=== PATIENT | male | born 1950 | race Caucasian/White ===

== ENCOUNTER 2017-07-14 09:58 | Emergency (ER) | payer MEDICARE ==
[~2017-07-14] VITALS: Ht 182.9 cm; Wt 95.3 kg
[~2017-07-14 09:58] MED LIST: ALBUTEROL SULF8.5 GM INH; ALBUTEROL0.63 MG/3 INH; AMLODIPINE BESYL5 MG PO; BENEFIBER240 GM PO; BENTYL10 MG PO; BENTYL20 MG PO; CARAFATE1 GM/10 ML PO; DOXYCYCLINE HY100 M3 PO; FINASTERIDE5 MG PO; LORAZEPAM2 MG PO; OMEPRAZOLE40 MG PO; PANTOPRAZOLE SO40 MG PO; PREVACID15 M1 PO; QUESTRAN PACKET4 GM PO; REGLAN10 MG; REGLAN10 MG PO; ULTRAM 50MG50 MG PO; Z.0.AMBIEN10 MG PO; Z.0.COUMADIN5 MG PO; Z.0.LYRICA200 MG PO; [UNRECOGNIZED DRUG - OTHER] PO
[2017-07-14] MEDS ORDERED: MORPHINE SULFATE 4 MG/ML SYR IV STA (10:02)
[2017-07-14] MEDS ORDERED: SODIUM CHLORIDE 0.9% 1000ML 1,000 ML IV STA (10:02)
[2017-07-14] MEDS ORDERED: ONDANSETRON HCL INJ 2 MG/ML VIAL IV STA (10:02)
[2017-07-14] MEDS ORDERED: DIATRIZOATE MEGL/DIATRIZOA SOD 30 ML BTL PO ONE (10:14)
[2017-07-14] MEDS ORDERED: MORPHINE SULFATE 2 MG/ML SYR IV NR (10:15)
[2017-07-14 10:50] LABS: BASOPHILS % 0.5 % (0.0-1.0); EOSINOPHILS # (AUTO) 0.2 (0.0-0.4); EOSINOPHILS % 2.6 % (0.0-6.0); HEMATOCRIT 48.7 % (38.2-49.6); HEMOGLOBIN 16.3 g/dL (14.0-18.0); LYMPHOCYTES # (AUTO) 1.8 (1.0-3.2); LYMPHOCYTES % 24.9 % (18.0-39.1); MEAN CORPUSCULAR HEMOGLOBIN 28.3 pg (28-32); MEAN CORPUSCULAR HGB CONC 33.5 g/dL (31-35); MEAN CORPUSCULAR VOLUME 84.7 fL (81-99); MONOCYTES # (AUTO) 0.6 (0.2-0.8); MONOCYTES % 7.9 % (4.4-11.3); NEUTROPHILS # (AUTO) 4.7 (2.1-6.9); NEUTROPHILS % 63.8 % (38.7-80.0); PLATELET COUNT 203 x10e3/uL (140-360); RED BLOOD COUNT 5.75 x10e6/uL (4.3-5.7); RED CELL DISTRIBUTION WIDTH 14.8 % (11.7-14.4)
[2017-07-14 10:53] LABS: BILIRUBIN,URINE NEGATIVE (NEGATIVE); KETONES,URINE NEGATIVE (NEGATIVE); LEUKOCYTE ESTERASE ,URINE NEGATIVE (NEGATIVE); NITRITE,URINE NEGATIVE (NEGATIVE); PROTEIN,URINE DIPSTICK NEGATIVE (NEGATIVE); URINE UROBILINOGEN 0.2 mg/dL (0.2 - 1)
[2017-07-14 10:55] LABS: COLOR,URINE YELLOW (YELLOW)
[2017-07-14 11:06] LABS: ALANINE AMINOTRANSFERASE 14 IU/L (0-55); ALBUMIN 4.2 g/dL (3.5-5.0); ALKALINE PHOSPHATASE 104 IU/L (40-150); ANION GAP 13.4 mmol/L (8-16); BLOOD UREA NITROGEN 12 mg/dL (7-26); BUN/CREATININE RATIO 12 (6-25); CALCIUM 9.9 mg/dL (8.4-10.2); CARBON DIOXIDE 23 mmol/L (22-29); CHLORIDE 105 mmol/L (98-107); CREATINE KINASE 33 IU/L (30-200); EST GLOMERULAR FILTRATION RATE > 60 ML/MIN (60-); GLUCOSE 111 mg/dL (74-118); LIPASE 17 U/L (8-78); POTASSIUM 4.4 mmol/L (3.5-5.1); SODIUM 137 mmol/L (136-145)
[2017-07-14 11:12] LABS: TROPONIN I 0.011 ng/mL (0-0.300)
[2017-07-14 11:13] LABS: CLARITY,URINE SL CLOUDY (CLEAR); EPITHELIAL CELLS,URINE RARE /LPF; WBC,URINE (MAN) 0-5 /HPF (0-5)
--- NOTE | 2017-07-14 11:51 | Diagnostic Imaging Report ---
PROCEDURE:CHEST SINGLE (PORTABLE) TECHNIQUE:Portable AP chest INDICATION:Diarrhea; abdominal pain COMPARISON:None. FINDINGS: Lungs are clear and symmetrically inflated. No pleural effusions. Normal heart size, mediastinal contour and pulmonary vasculature. Intact skeleton. CONCLUSION: No acute abnormality. Dictated by: Brian Diaz M.D. on 07/14/2017 at 12:00 Electronically approved by: Brian Diaz M.D. on 07/14/2017 at 12:00
[2017-07-14] MEDS ORDERED: SODIUM CHLORIDE 0.9% 50ML 50 ML ONE (11:54)
[2017-07-14] MEDS ORDERED: IOPAMIDOL 370 MG/ML 200 ML INFUS..BTL INJ ONE (11:54)
--- NOTE | 2017-07-14 12:13 | Diagnostic Imaging Report ---
PROCEDURE: CT ABDOMEN AND PELVIS WITH CONTRAST TECHNIQUE: The abdomen and pelvis were scanned utilizing a multidetector helical scanner from the diaphragm to the lesser trochanter after the IV administration of 100 cc of Isovue 370 and the oral administration of dilute Gastrografin. Coronal and sagittal multiplanar reformations were obtained. COMPARISON: [facility], CT, CT ABDOMEN/PELVIS W, 11/12/2016, 18:45. INDICATIONS: ABDOMINAL PAIN FINDINGS: LOWER THORAX: Linear opacities in bilateral lower lobes, which may represent subsegmental atelectasis or scarring. Scattered areas of tree in bud opacities in the posterolateral right lower lobe (for example series 2, image 5), and left lower lobe (series 2, image 3). HEPATOBILIARY: No focal hepatic lesions. Stable mild dilation of the common bile duct, which measures approximately 9 mm at the mita hepatis. No radiopaque intraluminal filling defects. Cholecystectomy clips. SPLEEN: No splenomegaly. PANCREAS: No focal masses or ductal dilatation. Marked fatty replacement, worse in the pancreatic head and uncinate process. ADRENALS: No adrenal nodules. KIDNEYS/URETERS: No hydronephrosis, stones, or solid mass lesions. PELVIC ORGANS/BLADDER: Bladder shows no focal lesions or wall thickening. Enlarged prostate. PERITONEUM / RETROPERITONEUM: No free air or fluid. LYMPH NODES: No lymphadenopathy. VESSELS: Celiac trunk, superior and inferior mesenteric, and bilateral renal arteries are patent. Portal, superior mesenteric, and splenic veins are patent. Atherosclerotic calcification of the infrarenal abdominal aorta and iliac vessels. GI TRACT: No bowel dilation or evidence of obstruction. Appendix is well identified and normal in caliber. No pericolonic inflammatory changes. Stomach is unremarkable. BONES AND SOFT TISSUES: No aggressive lytic lesions. Stable vertebroplasty changes in L2. Soft tissues are grossly unremarkable. IMPRESSION: 1. no acute abdominopelvic abnormalities. Specifically, no acute abnormal findings to explain the patient's abdominal pain. 2. Scattered areas of tree in bud opacities in bilateral lower lobes, suggesting endobronchial spread of infection versus aspiration. 3. Stable CBD dilation secondary to post cholecystectomy status. Clive Mitchell M.D. Dictated by: Clive Mitchell M.D. on 07/14/2017 at 12:22 Electronically approved by: Clive Mitchell M.D. on 07/14/2017 at 12:22
[2017-07-14 13:21] VITALS: BP 129/82
== END 2017-07-14 13:22 | disposition home or self-care (01) ==
LOC: ER 09:58
DX: R10.31 Right lower quadrant pain (principal); R10.32 Left lower quadrant pain; R10.33 Periumbilical pain; G62.9 Polyneuropathy, unspecified; K50.90 Crohn's disease, unspecified, without complications; B19.20 Unspecified viral hepatitis C without hepatic coma; J44.9 Chronic obstructive pulmonary disease, unspecified; M54.9 Dorsalgia, unspecified; G89.29 Other chronic pain
CPT/HCPCS: 36415; 71010; 74177; 80053; 81001; 82550; 82553; 83605; 83690; 84484; 85025; 87086; 93005; 99284; J7030; Q9967

== ENCOUNTER 2017-11-08 09:08 | Emergency (ER) | payer MEDICARE ==
[~2017-11-08] VITALS: Ht 182.9 cm; Wt 97.5 kg
--- OUTSIDE RECORDS SUMMARY | 2017-11-08 09:12 | XMS REPORT ---
Author Author [facility] Address Unknown Phone Unavailable Care Team Providers Care Associate Professor Of Media Arts Name Role Phone SYMONE HARMAN Unavailable Unavailable LUCIUS VALLEJO Unavailable Unavailable Problems This patient has no known problems. Allergies, Adverse Reactions, Alerts This patient has no known allergies or adverse reactions. Medications This patient has no known medications. Encounters Start Date/Time End Date/Time Encounter Type Admission Type Attending [facility] Facility Care Department Encounter ID 2017-11-04 00:00:00 2017-11-04 00:00:00 Outpatient [facility] [id number] 2017-09-24 00:00:00 2017-09-24 00:00:00 Outpatient [facility] [id number] 2017-09-15 09:02:11 2017-09-15 09:02:11 Outpatient [facility] [id number] 2017-09-09 11:29:47 2017-09-09 11:29:47 Outpatient [facility] [id number] 2017-09-09 09:11:38 2017-09-09 09:11:38 Outpatient [facility] [id number] 2017-07-27 00:00:00 2017-07-27 00:00:00 Outpatient [facility] [id number] 2017-06-24 00:00:00 2017-06-24 00:00:00 Outpatient [facility] [id number] 2017-06-17 00:00:00 2017-06-17 00:00:00 Outpatient [facility] [id number] 2017-06-17 00:00:00 2017-06-17 00:00:00 Outpatient [facility] [id number] 2017-06-16 10:58:20 2017-06-16 10:58:20 Outpatient [facility] [id number] 2017-06-16 08:37:07 2017-06-16 08:37:07 Outpatient [facility] [id number] 2017-04-29 07:13:01 2017-04-29 07:13:01 Outpatient [facility] [id number] 2017-04-02 15:00:32 2017-04-02 15:00:32 Outpatient [facility] [id number] 2017-03-11 07:20:14 2017-03-11 07:20:14 Outpatient [facility] [id number] 2017-03-04 08:42:50 2017-03-04 08:42:50 Outpatient [facility] [id number] 2017-02-12 00:00:00 2017-02-12 00:00:00 Outpatient [facility] [id number] 2017-02-11 08:53:03 2017-02-11 08:53:03 Outpatient [facility] [id number] 2017-02-05 09:50:10 2017-02-05 09:50:10 Outpatient [facility] [id number] 2017-02-05 08:17:33 2017-02-05 08:17:33 Outpatient [facility] [id number] 2017-02-05 07:33:43 2017-02-05 07:33:43 Outpatient [facility] [id number] 2017-01-20 06:40:15 2017-01-20 06:40:15 Outpatient [facility] [id number] 2016-12-22 00:00:00 2016-12-22 00:00:00 Outpatient [facility] [id number] 2016-12-10 08:24:09 2016-12-10 08:24:09 Outpatient [facility] [id number] 2016-12-09 12:22:40 2016-12-09 12:22:40 Outpatient [facility] [id number] Results Test Description Test Time Test Comments Text Results Atomic Results Result Comments CHEST SINGLE (PORTABLE) [place] [address] Patient Name: FORREST MANZANARES MR #: [id number] : 1950 Age/Sex: 67/M Req #: [id number] Adm Physician: Ordered by: OSWALDO FUENTES CINDER PITMAN Report #: [id number] Location: ER Room/Bed: Procedure: [id number] DX/CHEST SINGLE (PORTABLE) Exam Date: 07/14/17 Exam Time: 1130 REPORT STATUS: Signed PROCEDURE: CHEST SINGLE (PORTABLE) TECHNIQUE: Portable AP chest INDICATION: Diarrhea; abdominal pain COMPARISON: None. FINDINGS: Lungs are clear and symmetrically inflated. No pleural effusions. Normal heart size, mediastinal contour and pulmonary vasculature. Intact skeleton. CONCLUSION: No acute abnormality. Dictated by: Amauri Diaz M.D. on 07/14/2017 at 12:00 Electronically approved by: Amauri Diaz M.D. on 07/14/2017 at 12:00 Dictated By: AMAURI DIAZ MD 1200 Transcribed By: DOMO on 07/14/17 1200 COPY TO: OSWALDO FUENTES CINDER PITMAN CT ABDOMEN/PELVIS W [place] [address] Patient Name: FORREST MANZANARES MR #: [id number] : 1950 Age/Sex: 67/M Req #: [id number] Adm Physician: Ordered by: OSWALDO FUENTES NP Report #: [id number] Location: ER Room/Bed: Procedure: CT/CT ABDOMEN/PELVIS W Exam Date: 07/14/17 Exam Time: 1125 REPORT STATUS: Signed PROCEDURE: CT ABDOMEN AND PELVIS WITH CONTRAST TECHNIQUE: The abdomen and pelvis were scanned utilizing a multidetector helical scanner from the diaphragm to the lesser trochanter after the IV administration of 100 cc of Isovue 370 and the oral administration of dilute Gastrografin. Coronal and sagittal multiplanar reformations were obtained. COMPARISON: [facility], CT, CT ABDOMEN/PELVIS W, 11/12/2016, 18:45. INDICATIONS: ABDOMINAL PAIN FINDINGS: LOWER THORAX: Linear opacities in bilateral lower lobes, which may represent subsegmental atelectasis or scarring. Scattered areas of tree in bud opacities in the posterolateral right lower lobe (for example series 2, image 5), and left lower lobe (series 2, image 3) . HEPATOBILIARY: No focal hepatic lesions. Stable mild dilation of the common bile duct, which measures approximately 9 mm at the mita hepatis. No radiopaque intraluminal filling defects. Cholecystectomy clips. SPLEEN: No splenomegaly. PANCREAS: No focal masses or ductal dilatation. Marked fatty replacement, worse in the pancreatic head and uncinate process. ADRENALS: No adrenal nodules. KIDNEYS/URETERS: No hydronephrosis, stones, or solid mass lesions. PELVIC ORGANS/BLADDER: Bladder shows no focal lesions or wall thickening. Enlarged prostate. PERITONEUM / RETROPERITONEUM: No free air or fluid. LYMPH NODES: No lymphadenopathy. VESSELS: Celiac trunk, superior and inferior mesenteric, and bilateral renal arteries are patent. Portal, superior mesenteric, and splenic veins are patent. Atherosclerotic calcification of the infrarenal abdominal aorta and iliac vessels. GI TRACT: No bowel dilation or evidence of obstruction. Appendix is well identified and normal in caliber. No pericolonic inflammatory changes. Stomach is unremarkable. BONES AND SOFT TISSUES: No aggressive lytic lesions. Stable vertebroplasty changes in L2. Soft tissues are grossly unremarkable. IMPRESSION: 1. no acute abdominopelvic abnormalities. Specifically, no acute abnormal findings to explain the patient's abdominal pain. 2. Scattered areas of tree in bud opacities in bilateral lower lobes, suggesting endobronchial spread of infection versus aspiration. 3. Stable CBD dilation secondary to post cholecystectomy status. Kemal Mitchell M.D. Dictated by: Kemal Mitchell M.D. on 07/14/2017 at 12: 22 Electronically approved by: Kemal Mitchell M.D. on 07/14/2017 at 12:22 Dictated By: KEMAL MITCHELL MD 1222 Transcribed By: DOMO on 07/14/17 1222 COPY TO: OSWALDO FUENTES CINDER PITMAN SP LUMBAR, COMPLETE MIN 4VW [place] [address] Patient Name: FORREST MANZANARES MR #: [id number] : 1950 Age/Sex: 67/M Req #: [id number] Adm Physician: Ordered by: LORA MASCORRO CINDER PITMAN Report #: [id number] Location: ER Room/Bed: Procedure: [id number] DX/SP LUMBAR, COMPLETE MIN 4VW Exam Date: 06/08/17 Exam Time: 1745 REPORT STATUS: Signed PROCEDURE: SP LUMBAR, COMPLETE MIN 4VW TECHNIQUE: AP, lateral, coned-down lateral, bilateral oblique views lumbar spine totaling 5 radiographs INDICATION: Chronic back pain COMPARISON: [facility], CT, CT ABDOMEN/ PELVIS W, 11/12/2016, 18:45. FINDINGS: 5 [id number] lumbar vertebral bodies. L2 vertebroplasty. Vertebral body and disc space height are otherwise maintained. No gross neural foramen stenosis. Facets are intact , without notable degeneration. Regional skeleton intact. CONCLUSION: Sequela of L2 vertebroplasty without acute abnormality. Dictated by: Amauri Diaz M.D. on 06/08/2017 at 18:27 Electronically approved by: Amauri Diaz M.D. on 06/08/2017 at 18:27 Dictated By: AMAURI DIAZ MD 26 Transcribed By: DOMO on 06/08/171826 COPY TO: LORA MASCORRO CINDER PITMAN HIP LEFT 2-3 VW (+/- PELVIS) [place] [address] Patient Name: FORREST MANZANARES MR #: [id number] : 1950 Age/Sex: 67/M Req #: [id number] [facility] Physician: Ordered by: LORA MASCORRO NP Report #: [id number] Location: ER Room/Bed: Procedure: [id number] DX/HIP LEFT 2-3 VW (+/- PELVIS) Exam Date: Exam Time: REPORT STATUS: Signed PROCEDURE: HIP LEFT 2 -3 VW (+/- PELVIS) TECHNIQUE: AP pelvis; AP and frog-leg lateral views left hip totaling 6 radiographs INDICATION: Left hip pain COMPARISON: [facility], CT, CT ABDOMEN/PELVIS W, 11/12/2016, 18:45. FINDINGS: Intact pelvic ring. Antegrade femoral nik with femoral neck screw. Healed proximal left femoral and femoral neck fracture with regional dystrophic calcification. No evidence of hardware failure, loosening or other acute abnormality. Overall appearance is similar to CT abdomen pelvis of November 12. Acetabular sclerosis with small marginal osteophytes bilaterally. Subchondral sclerosis of the left femoral head better seen on CT abdomen. CONCLUSION: No acute abnormality. Healed left femur fracture similar in appearance to October 2016, with regional dystrophic calcification. Dictated by: Amauri Diaz M.D. on 2016 at 18:25 Electronically approved by: Amauri Diaz M.D. on at 18:25 Dictated By: AMAURI DIAZ MD 24 Transcribed By: DOMO on 06/08/171824 COPY TO: LORA MASCORRO NP
--- OUTSIDE RECORDS SUMMARY | 2017-11-08 09:12 | XMS REPORT | Clinical Summary ---
Author Author [facility] Address Unknown Phone Unavailable Care Team Providers Care Day Light Relief Operator Name Role Phone PCP Unavailable Allergies No Known Allergies Current Medications Prescription Sig. Disp. Refills Start End Date Status Date NAPROXEN ORAL Take by mouth 3 (three) Active times daily as needed. albuterol HFA (VENTOLIN Inhale 1 puff by mouth Active HFA) 90 mcg/actuation via inhaler every 6 (six) inhaler hours as needed for Wheezing. albuterol (ACCUNEB) 0.63 Take 1 ampule by Active mg/3 mL nebulizer nebulization every 6 solution (six) hours as needed for Wheezing. fluticasone-salmeterol Inhale 1 puff by mouth Active (ADVAIR) 500-50 mcg/dose via inhaler 2 (two) times diskus inhaler daily. mesalamine (PENTASA) 500 Take 500 mg by mouth 4 Active MG CR capsule (four) times daily. traMADol (ULTRAM) 50 mg Take 50 mg by mouth every Active tablet 6 (six) hours as needed for Pain. Active Problems Not on file Encounters Date Type Specialty Care Team Description 07/09/2017 Emergency Emergency Medicine 07/08/2017 Orders Only General Internal Medicine after 11/07/2016 Immunizations Name Dates Previously Given Next Due Tdap 04/11/2013 Social History Tobacco Use Types Packs/Day Years Used Date Current Every Day Smoker 0.1 46 Smokeless Tobacco: Never Used Alcohol Use Drinks/Week oz/Week Comments No Sex Assigned at Date Recorded Not on file Last Filed Vital Signs Vital Sign Reading Time Taken Blood Pressure 124/81 07/08/2017 9:26 PM DIRECTOR OF COMPENSATION Pulse 114 07/08/2017 9:26 PM DIRECTOR OF COMPENSATION Temperature 36.7 C (98 F) 07/08/2017 9:26 PM DIRECTOR OF COMPENSATION Respiratory Rate 20 07/08/2017 9:26 PM DIRECTOR OF COMPENSATION Oxygen Saturation 96% 07/08/2017 9:26 PM DIRECTOR OF COMPENSATION Inhaled Oxygen - - Concentration Weight 93 kg (205 lb) 07/08/2017 9:26 PM DIRECTOR OF COMPENSATION Height 182.9 cm (6') 07/08/2017 9:26 PM DIRECTOR OF COMPENSATION Body Mass Index 27.8 07/08/2017 9:26 PM DIRECTOR OF COMPENSATION Plan of Treatment Not on file Results * ECG 12 lead (07/08/2017 9:11 PM) Specimen Performing Laboratory [facility] Narrative Ventricular Rate 108 BPM Atrial Rate 108 BPM P-R Interval 156 ms QRS Duration 86 ms Q-T Interval 336 ms QTC Calculation(Bazett) 450 ms P Randolph 59 degrees R Randolph 249 degrees T Randolph 51 degrees Sinus tachycardia S1-S2-S3 pattern, consider pulmonary disease, RVH, or normal variant Right ventricular hypertrophy Abnormal ECG When compared with ECG of 11-NOV-1999 07:19, S1-S2-S3 pattern, consider pulmonary disease, RVH, or normal variant is now present. Clinical correlation is needed. Confirmed by Maribel KAYE MICHAEL ([id number]) on 07/09/2017 9:53:41 AM Procedure Note Interface, External Ris In - 07/09/2017 9:53 AM DIRECTOR OF COMPENSATION Ventricular Rate 108 BPM Atrial Rate 108 BPM P-R Interval 156 ms QRS Duration 86 ms Q-T Interval 336 ms QTC Calculation(Bazett) 450 ms P Randolph 59 degrees R Randolph 249 degrees T Randolph 51 degrees Sinus tachycardia S1-S2-S3 pattern, consider pulmonary disease, RVH, or normal variant Right ventricular hypertrophy Abnormal ECG When compared with ECG of 11-NOV-1999 07:19, S1-S2-S3 pattern, consider pulmonary disease, RVH, or normal variant is now present. Clinical correlation is needed. Confirmed by Maribel KAYE MICHAEL ([id number]) on 07/09/2017 9:53:41 AM after 11/07/2016
[2017-11-08] MEDS ORDERED: SODIUM CHLORIDE FLUSH 10 ML SYR INJ PRN (09:30)
[2017-11-08] MEDS ORDERED: SODIUM CHLORIDE 0.9% 500ML 500 ML ONE (09:37)
[2017-11-08] MEDS ORDERED: DIATRIZOATE MEGL/DIATRIZOA SOD 30 ML BTL PO ONE (09:40)
[2017-11-08 09:43] LABS: BASOPHILS % 0.4 % (0.0-1.0); EOSINOPHILS # (AUTO) 0.2 (0.0-0.4); EOSINOPHILS % 2.9 % (0.0-6.0); HEMATOCRIT 42.5 % (38.2-49.6); HEMOGLOBIN 14.5 g/dL (14.0-18.0); LYMPHOCYTES # (AUTO) 1.5 (1.0-3.2); LYMPHOCYTES % 21.2 % (18.0-39.1); MEAN CORPUSCULAR HEMOGLOBIN 29.1 pg (28-32); MEAN CORPUSCULAR HGB CONC 34.1 g/dL (31-35); MEAN CORPUSCULAR VOLUME 85.3 fL (81-99); MONOCYTES # (AUTO) 0.6 (0.2-0.8); NEUTROPHILS # (AUTO) 4.6 (2.1-6.9); NEUTROPHILS % 67.1 % (38.7-80.0); PLATELET COUNT 210 x10e3/uL (140-360); RED BLOOD COUNT 4.98 x10e6/uL (4.3-5.7); RED CELL DISTRIBUTION WIDTH 13.9 % (11.7-14.4)
[2017-11-08] MEDS ORDERED: SODIUM CHLORIDE 0.9% 500ML 500 ML IV ONE (09:45)
[2017-11-08] MEDS ORDERED: HYDROMORPHONE 1MG/1ML INJ IV STA (10:04)
[2017-11-08 10:12] LABS: CLARITY,URINE CLEAR (CLEAR); COLOR,URINE YELLOW (YELLOW)
[2017-11-08 10:13] LABS: BILIRUBIN,URINE NEGATIVE (NEGATIVE); KETONES,URINE NEGATIVE (NEGATIVE); LEUKOCYTE ESTERASE ,URINE NEGATIVE (NEGATIVE); NITRITE,URINE NEGATIVE (NEGATIVE); PROTEIN,URINE DIPSTICK NEGATIVE (NEGATIVE); URINE UROBILINOGEN 0.2 mg/dL (0.2 - 1)
[2017-11-08] MEDS ORDERED: MORPHINE SULFATE 2 MG/ML SYR IV STA (10:13)
[2017-11-08] MEDS ORDERED: PROMETHAZINE 12.5MG/ NACL 0.9% 12.5 MG/50 ML BAG IV ONE (10:15)
[2017-11-08] MEDS ORDERED: ONDANSETRON HCL 4 MG ORAL DISINTEGRATING TAB PO ONE (10:15)
[2017-11-08 10:16] LABS: ALANINE AMINOTRANSFERASE 7 IU/L (0-55); ALBUMIN 3.6 g/dL (3.5-5.0); ALBUMIN/GLOBULIN RATIO 0.9 (0.8-2.0); ALKALINE PHOSPHATASE 90 IU/L (40-150); ANION GAP 11.6 mmol/L (8-16); BLOOD UREA NITROGEN 10 mg/dL (7-26); BUN/CREATININE RATIO 11 (6-25); CALCIUM 10.3 mg/dL (8.4-10.2); CARBON DIOXIDE 26 mmol/L (22-29); CHLORIDE 105 mmol/L (98-107); CREATINE KINASE 44 IU/L (30-200); CREATININE, SERUM 0.87 mg/dL (0.72-1.25); EST GLOMERULAR FILTRATION RATE > 60 ML/MIN (60-); GLUCOSE 108 mg/dL (74-118); POTASSIUM 3.6 mmol/L (3.5-5.1); SODIUM 139 mmol/L (136-145)
--- NOTE | 2017-11-08 11:14 | Diagnostic Imaging Report ---
EXAM: CT Abdomen and Pelvis WITH contrast INDICATION: \S\abd pain, h/o crohns. Diarrhea. COMPARISON: CT abdomen and pelvis 07/14/2017. 11/12/2016. 03/18/2015. TECHNIQUE: Abdomen and pelvis were scanned utilizing a multidetector helical scanner from the lung base to the pubic symphysis after administration of IV contrast. Coronal and sagittal reformations were obtained. Routine protocol was performed. Scan was performed when during portal venous phase. IV CONTRAST: 100 mL of Isovue 370 ORAL CONTRAST: Gastrografin COMPLICATIONS: None RADIATION DOSE: Total DLP: 719.31 mGy*cm Estimated effective dose: (DLP x 0.015 x size factor) mSv CTDIvol has been reviewed. It is below the limits set by the Radiation Protocol Committee (RPC). FINDINGS: LINES and TUBES: None. LOWER THORAX: Unremarkable HEPATOBILIARY: The liver is diffuse hypodense compared to the spleen, consistent with diffuse hepatic diffuse hepatic steatosis. No focal hepatic lesions. There is intra- and extra- hepatic biliary dilation likely post cholecystectomy resevoir effect. GALLBLADDER: There are cholecystectomy clips. SPLEEN: No splenomegaly. PANCREAS: There is fatty infiltration of the pancreas. ADRENALS: No adrenal nodules KIDNEYS/URETERS: Kidneys enhance symmetrically. No hydronephrosis. No cystic or solid mass lesions. No stones. GI TRACT: No abnormal distention, wall thickening, or evidence of bowel obstruction. Small sliding hernia. Appendix is normal. PELVIC ORGANS/BLADDER: Prostate measures 5.1 cm in transverse dimension. LYMPH NODES: No lymphadenopathy. VESSELS: There is moderate atherosclerotic disease in the aorta and major arterial branches. PERITONEUM / RETROPERITONEUM: No free air or fluid. BONES: Vertebroplasty material in L2 vertebral body. Left femoral intramedullary nik and intertrochanteric screw. Significant surrounding dystrophic aspirations. No discrete fracture line visualized. Osteopenia with degenerative cystic changes of the left femoral head. SOFT TISSUES: Unremarkable. IMPRESSION: 1. No acute abnormalities in the abdomen or pelvis. 2. Diffuse hepatic steatosis. Signed by: Dr. Tripp Funes M.D. on 11/08/2017 11:11 AM
[2017-11-08 12:49] VITALS: BP 138/96
[2017-11-08] MEDS ORDERED: IOPAMIDOL 370 MG/ML 200 ML INFUS..BTL INJ ONE (17:10)
[2017-11-08] MEDS ORDERED: SODIUM CHLORIDE 0.9% 50ML 50 ML ONE (17:10)
[2017-11-11] MEDS ORDERED: FINASTERIDE5 MG PO (16:19)
[2017-11-11] MEDS ORDERED: PENTASA500 MG PO (16:19)
[2017-11-11] MEDS ORDERED: GABAPENTIN400 MG PO (16:20)
[2017-11-11] MEDS ORDERED: FLOMAX0.4 MG PO (16:20)
== END 2017-11-08 12:20 | disposition home or self-care (01) ==
LOC: ER 09:08
DX: R10.84 Generalized abdominal pain (principal); R11.0 Nausea; R19.7 Diarrhea, unspecified; K50.90 Crohn's disease, unspecified, without complications
CPT/HCPCS: 36415; 74177; 80053; 81001; 82550; 82553; 84484; 85025; 93005; 99284; J2270; J7040; Q9967

== ENCOUNTER 2017-11-09 10:59 | Emergency (ER) | payer MEDICARE ==
[~2017-11-09] VITALS: Ht 182.9 cm; Wt 97.5 kg
--- OUTSIDE RECORDS SUMMARY | 2017-11-09 11:01 | XMS REPORT | Continuity of Care Document ---
Author Author [facility] Organization [facility] Address [address] [place] [address] Phone Unavailable Care Team Providers Care Edge Polisher Name Role Phone NO, PCP PCP Unavailable Insurance Providers Guarantor Forrest Aragon Address [address] [place] [address] Email [email or web address] Payer [employer] Medicare Complete Policy Number [id number] Subscriber's Name Forrest Aragon Relationship 18 Self / Same As Patient Group Number [id number] Effective Date 17 Advance Directives Directive Response Recorded Date/Time Does the patient have an advance directive? Yes 11/12/16 9:20pm If yes, is advance directive on file with [facility]? No 11/12/16 9:20pm If not on file with [facility] will patient provide a copy? Yes 11/12/16 9:20pm Do you have a Directive to Physician? No 11/08/17 9:39am Do you have a Medical Power of Supervisor Accounting Clerks? No 11/08/17 9:39am Do you have an out of hospital Do Not Resuscitate Order? No 11/08/17 9:39am Do you have any special needs we should be aware of? No 11/08/17 9:39am Do you have a support person here with you today? No 11/08/17 9:39am Did patient receive Notice of Privacy Practices? Yes 11/08/17 9:39am Did patient receive patient rights and responsibilities? Yes 11/08/17 9:39am Problems No problem information available. Medications Current Home Medications Medication Dose Units Route Directions Days Qty Instructions Start Date Amlodipine Besylate 5 Mg Tablet 5 Mg Oral Daily 30 Tab Cholestyramine (With Sugar) (Questran Packet) 4 Gm Packet 4 Gm Oral Dicyclomine Hcl (Bentyl) 10 Mg Capsule 10 Mg Oral Three Times A Day Metoclopramide Hcl (Reglan) 10 Mg Tablet Pantoprazole Sodium (Protonix) 40 Mg Tablet.dr 40 Mg Oral Daily Pantoprazole Sodium (Protonix) 40 Mg Tablet.dr 40 Mg Oral Tramadol Hcl (Ultram 50MG*) 50 Mg Tab 50 Mg Oral Four Times Daily Past Home Medications Medication Directions Ordered Status Albuterol Sulfate 0.63 Mg/3 Ml Vial.neb, Inh Inhalation As Needed Discontinued Albuterol Sulfate (Albuterol Sulfate Hfa) 8.5 Gm Hfa.aer.ad, 8.5 Gm Inhalation Four Times Daily as needed for Shortness Of Breath Discontinued Dicyclomine Hcl (Bentyl) 20 Mg Tablet, 20 Mg Oral Three Times A Day as needed for Abdominal Pain Discontinued Doxycycline Hyclate 100 Mg Tablet, 100 Mg Oral Daily Discontinued Finasteride 5 Mg Tablet, 5 Mg Oral Daily Discontinued Guar Gum (Benefiber) 240 Gm Powder, 2 Tbs Oral Daily Discontinued Lansoprazole (Prevacid) 15 Mg Tab.rap.dr, 15 Mg Oral Daily Discontinued Lorazepam 2 Mg Tablet, 2 Mg Oral Twice A Day Discontinued Metoclopramide Hcl (Reglan) 10 Mg Tablet, 10 Mg Oral Twice A Day Discontinued Omeprazole 40 Mg Capsule.dr, 40 Mg Oral Twice A Day Discontinued Omeprazole 40 Mg Capsule.dr, 40 Mg Oral Twice A Day Discontinued Omeprazole/Sodium Bicarbonate (Omeprazole-Bicarb 40-1,100 Cap) 1 Each Capsule, 1 Each Oral Daily Discontinued Pantoprazole Sodium (Protonix) 40 Mg Tablet.dr, 40 Mg Oral Daily Discontinued Pregabalin (Lyrica) 200 Mg Capsule, 200 Mg Oral Twice A Day Discontinued Sucralfate (Carafate) 1 Gm/10 Ml Oral.susp, 1 Gm Oral Before Meals And At Bedtime Discontinued Tramadol Hcl (Ultram 50MG*) 50 Mg Tab, 50 Mg Oral Daily Discontinued Warfarin Sodium (Coumadin) 5 Mg Tablet, 5 Mg Oral Daily Discontinued Zolpidem Tartrate (Ambien) 10 Mg Tablet, 10 Mg Oral Daily as needed Discontinued Social History Social History Problem Response Recorded Date/Time Onset Date Status Hx Psychiatric Problems No 11/12/2016 9:20pm Not Applicable Not Applicable Smoking Status Start Date Stop Date Former smoker Hospital Discharge Instructions No hospital discharge instruction information available. Plan of Care Discharge Date 11/08/17 12:20pm Disposition HOME, SELF-CARE Condition at Discharge Stable Instructions/Education Provided Abdominal Pain - Adult Crohn's Disease Forms Provided Work/School Excuse Prescriptions See Medication Section Referrals PRASHANT THOMPSON MD Address: [address] [place] [address] [address] [place], [place] [id number] Additional Instructions/Education PLAN: 1) Discharged from ER to home. 2) Follow up with Dr Thompson on Thursday11-09-17. Please call the office in the morning to make a follow up appointment. Pt said he already has a referral from his PCP to see Dr Thompson. 3) Take Zofran 8mg ODT every 8 hours as needed for nausea or vomiting. 4) Take Talwin NX, 1-2 every 6 hours as needed for severe pain. 5) Eat a bland diet. 6) Return to the emergency room if you have worsening pain, fever, vomiting, bloody stool/vomit or if you have any other problems. Functional Status No functional status information available. Allergies, Adverse Reactions, Alerts No known allergies. Immunizations No immunization information available. Vital Signs Acute Vital Signs Vital Response Date/Time Temperature (Fahrenheit) 98.6 degrees F (97.6 - 99.5) 07/14/2017 1:21pm Pulse Pulse Rate (adult) 79 bpm (60 - 90) 07/14/2017 1:21pm Respiratory Rate 20 bpm (12 - 24) 07/14/2017 1:21pm Blood Pressure 138/96 mm Hg 11/08/2017 12:49pm Height 6 ft 0 in 11/08/2017 9:14am Weight 215 lb 11/08/2017 9:14am Body Mass Index 29.2 kg/m^2 11/08/2017 9:14am Results Laboratory Results Test Name Result Units Flags Reference Collection Date/Time Result Date/ Time Comments Lactic Acid Level 13.5 MG/DL 4.5-19.8 07/14/2017 10:33am 07/14/2017 11: 05am Lipase 17 U/L 8-78 07/14/2017 10:33am 07/14/2017 11:12am White Blood Count 6.84 x10e3/uL 4.8-10.8 11/08/2017 9:11/08/2017 9 :44am Red Blood Count 4.98 x10e6/uL 4.3-5.7 11/08/2017 9:11/08/2017 9: 44am Hemoglobin 14.5 g/dL 14.0-18.0 11/08/2017 9:11/08/2017 9:44am Hematocrit 42.5 % 38.2-49.6 11/08/2017 9:11/08/2017 9:44am Mean Corpuscular Volume 85.3 fL 81-99 11/08/2017 9:11/08/2017 9: 44am Mean Corpuscular Hemoglobin 29.1 pg 28-32 11/08/2017 9:11/08/2017 9:44am Mean Corpuscular Hemoglobin Concent 34.1 g/dL 31-35 11/08/2017 9:11/08/2017 9:44am Red Cell Distribution Width 13.9 % 11.7-14.4 11/08/2017 9:2017 9:44am Platelet Count 210 x10e3/uL 140-360 11/08/2017 9:11/08/2017 9: 44am Neutrophils (%) (Auto) 67.1 % 38.7-80.0 11/08/2017 9:11/08/2017 9: 44am Lymphocytes (%) (Auto) 21.2 % 18.0-39.1 11/08/2017 9:11/08/2017 9: 44am Monocytes (%) (Auto) 8.0 % 4.4-11.3 11/08/2017 9:11/08/2017 9: 44am Eosinophils (%) (Auto) 2.9 % 0.0-6.0 11/08/2017 9:11/08/2017 9: 44am Basophils (%) (Auto) 0.4 % 0.0-1.0 11/08/2017 9:11/08/2017 9:44am IM GRANULOCYTES % 0.4 % 0.0-1.0 11/08/2017 9:11/08/2017 9:44am Neutrophils # (Auto) 4.6 2.1-6.9 11/08/2017 9:11/08/2017 9:44am Lymphocytes # (Auto) 1.5 1.0-3.2 11/08/2017 9:11/08/2017 9:44am Monocytes # (Auto) 0.6 0.2-0.8 11/08/2017 9:11/08/2017 9:44am Eosinophils # (Auto) 0.2 0.0-0.4 11/08/2017 9:11/08/2017 9:44am Basophils # (Auto) 0.0 0.0-0.1 11/08/2017 9:11/08/2017 9:44am Absolute Immature Granulocyte (auto 0.03 x10e3/uL 0-0.1 11/08/2017 9: 11/08/2017 9:44am Urine Color YELLOW YELLOW 11/08/2017 9:11/08/2017 10:14am Urine Clarity CLEAR CLEAR 11/08/2017 9:11/08/2017 10:14am Urine Specific [place] 1.020 1.010-1.025 11/08/2017 9:2017 10:14am Urine pH 5 5 - 7 11/08/2017 9:11/08/2017 10:14am Urine Leukocyte Esterase NEGATIVE NEGATIVE 11/08/2017 9:2017 10:14am Urine Nitrite NEGATIVE NEGATIVE 11/08/2017 9:11/08/2017 10:14am Urine Protein NEGATIVE NEGATIVE 11/08/2017 9:11/08/2017 10:14am Urine Glucose (UA) NEGATIVE NEGATIVE 11/08/2017 9:11/08/2017 10: 14am Urine Ketones NEGATIVE NEGATIVE 11/08/2017 9:11/08/2017 10:14am Urine Urobilinogen 0.2 mg/dL 0.2 - 1 11/08/2017 9:2011/08/2017 10: 14am Urine Bilirubin NEGATIVE NEGATIVE 11/08/2017 9:11/08/2017 10: 14am Urine Blood NEGATIVE NEGATIVE 11/08/2017 9:11/08/2017 10:14am Urine WBC NONE /HPF 0-5 11/08/2017 9:11/08/2017 10:14am Urine RBC NONE /HPF 0-5 11/08/2017 9:11/08/2017 10:14am Urine Bacteria NONE /HPF NONE 11/08/2017 9:11/08/2017 10:14am Urine Epithelial Cells NONE /LPF NONE 11/08/2017 9:11/08/2017 10: 14am Sodium Level 139 mmol/L 136-145 11/08/2017 9:11/08/2017 10:17am Potassium Level 3.6 mmol/L 3.5-5.1 11/08/2017 9:11/08/2017 10: 17am Chloride Level 105 mmol/L 98-107 11/08/2017 9:11/08/2017 10:17am Carbon Dioxide Level 26 mmol/L 22-29 11/08/2017 9:11/08/2017 10: 17am Anion Gap 11.6 mmol/L 8-11/08/2017 9:11/08/2017 10:17am Blood Urea Nitrogen 10 mg/dL 7-26 11/08/2017 9:11/08/2017 10:17am Creatinine 0.87 mg/dL 0.72-1.25 11/08/2017 9:11/08/2017 10:17am BUN/Creatinine Ratio 11 6-25 11/08/2017 9:11/08/2017 10:17am Estimat Glomerular Filtration Rate > 60 ML/MIN 60- 11/08/2017 9: 10:17am Ranges were taken from the National Kidney Disease Education Program and the National Kidney Foundation literature. Reference ranges: 60 or greater: Normal 16-59 (for 3 consecutive months): Chronic kidney disease 15 or less: Kidney failure Glucose Level 108 mg/dL 74-118 11/08/2017 9:11/08/2017 10:17am Calcium Level 10.3 mg/dL H 8.4-10.2 11/08/2017 9:11/08/2017 10: 17am Total Bilirubin 0.6 mg/dL 0.2-1.2 11/08/2017 9:11/08/2017 10:17am Aspartate Amino Transf (AST/SGOT) 11 IU/L 5-34 11/08/2017 9:2017 10:17am Alanine Aminotransferase (ALT/SGPT) 7 IU/L 0-55 11/08/2017 9:11/08 10:17am Total Protein 7.7 g/dL 6.5-8.1 11/08/2017 9:11/08/2017 10:17am Albumin 3.6 g/dL 3.5-5.0 11/08/2017 9:11/08/2017 10:17am Globulin 4.1 g/dL H 2.3-3.5 11/08/2017 9:11/08/2017 10:17am Albumin/Globulin Ratio 0.9 0.8-2.0 11/08/2017 9:11/08/2017 10: 17am Alkaline Phosphatase 90 IU/L 40-150 11/08/2017 9:11/08/2017 10: 17am Creatine Kinase 44 IU/L 30-200 11/08/2017 9:11/08/2017 10:17am Creatine Kinase MB 1.70 ng/mL 0-5.0 11/08/2017 9:11/08/2017 10: 37am Troponin I < 0.001 ng/mL 0-0.300 11/08/2017 9:11/08/2017 10:37am Procedures Procedure Status Date Provider(s) Computed tomography of abdomen and pelvis with contrast Active 07/14/17 OSWALDO FUENTES NP Computed tomography of abdomen and pelvis with contrast Active 11/08/17 CHRISTIAN LOWE Encounters Encounter Location Arrival/Admit Date Discharge/Depart Date Attending Provider Departed Emergency [facility] 11/08/17 9:08am 12:20pm LUCIUS VALLEJO MD Departed Emergency [facility] 07/14/17 9:58am 1:22pm SYMONE HARMAN MD Departed Emergency [facility] 06/08/17 5:27pm 7:59pm LUCIUS VALLEJO MD
--- OUTSIDE RECORDS SUMMARY | 2017-11-09 11:01 | XMS REPORT | Clinical Summary ---
Author Author [facility] Address Unknown Phone Unavailable Care Team Providers Care Pinion Polisher Name Role Phone PCP Unavailable Allergies No [...] 07/08/2017 Orders Only General Internal Medicine after 11/08/2016 Immunizations Name Dates Previously Given Next Due Tdap 04/11/2013 Social History Tobacco Use Types Packs/Day Years Used Date Current Every Day Smoker 0.1 46 Smokeless Tobacco: Never Used Alcohol Use Drinks/Week oz/Week Comments No Sex Assigned at Date Recorded Not on file Last Filed Vital Signs Vital Sign Reading Time Taken Blood Pressure 124/81 07/08/2017 9:26 PM SHEET TESTER Pulse 114 07/08/2017 9:26 PM SHEET TESTER Temperature 36.7 C (98 F) 07/08/2017 9:26 PM SHEET TESTER Respiratory Rate 20 07/08/2017 9:26 PM SHEET TESTER Oxygen Saturation 96% 07/08/2017 9:26 PM SHEET TESTER Inhaled Oxygen - - Concentration Weight 93 kg (205 lb) 07/08/2017 9:26 PM SHEET TESTER Height 182.9 cm (6') 07/08/2017 9:26 PM SHEET TESTER Body Mass Index 27.8 07/08/2017 9:26 PM SHEET TESTER Plan of Treatment Not on file Results * ECG 12 lead (07/08/2017 9:11 PM) Specimen Performing Laboratory [employer] Narrative Ventricular Rate 108 BPM Atrial Rate 108 BPM P-R Interval 156 ms QRS Duration 86 ms Q-T Interval 336 ms QTC Calculation(Bazett) 450 ms P [place] 59 degrees R [place]iss[place] 249 degrees T [place] 51 degrees Sinus tachycardia S1-S2-S3 pattern, consider pulmonary disease, RVH, or normal variant Right ventricular hypertrophy Abnormal ECG When compared with ECG of 11-NOV-1999 07:19, S1-S2-S3 pattern, consider pulmonary disease, RVH, or normal variant is now present. Clinical correlation is needed. Confirmed by Maribel KAYE MICHAEL ([id number]) on 07/09/2017 9:53:41 AM Procedure Note Interface, External Ris In - 07/09/2017 9:53 AM SHEET TESTER Ventricular Rate 108 BPM Atrial Rate 108 BPM P-R Interval 156 ms QRS Duration 86 ms Q-T Interval 336 ms QTC Calculation(Bazett) 450 ms P [place] 59 degrees R [place] 249 degrees T [place]iss[place] 51 degrees Sinus tachycardia S1-S2-S3 pattern, consider pulmonary disease, RVH, or normal variant Right ventricular hypertrophy Abnormal ECG When compared with ECG of 11-NOV-1999 07:19, S1-S2-S3 pattern, consider pulmonary disease, RVH, or normal variant is now present. Clinical correlation is needed. Confirmed by Maribel KAYE MICHAEL ([id number]) on 07/09/2017 9:53:41 AM after 11/08/2016
[2017-11-09] MEDS ORDERED: SODIUM CHLORIDE 0.9% 1000ML 1,000 ML IV STA (11:28)
[2017-11-09] MEDS ORDERED: MORPHINE SULFATE 4 MG/ML SYR IV STA (11:28)
[2017-11-09] MEDS ORDERED: ONDANSETRON HCL 4 MG ORAL DISINTEGRATING TAB PO ONE (11:30)
[2017-11-11] MEDS ORDERED: FINASTERIDE5 MG PO (16:19)
[2017-11-11] MEDS ORDERED: PENTASA500 MG PO (16:19)
[2017-11-11] MEDS ORDERED: FLOMAX0.4 MG PO (16:20)
[2017-11-11] MEDS ORDERED: GABAPENTIN400 MG PO (16:20)
== END 2017-11-09 12:45 | disposition left against medical advice (07) ==
LOC: ER 10:59
DX: R10.11 Right upper quadrant pain (principal); R11.0 Nausea; K50.90 Crohn's disease, unspecified, without complications; K58.9 Irritable bowel syndrome, unspecified; F17.210 Nicotine dependence, cigarettes, uncomplicated

== ENCOUNTER → 2017-11-12 | Day surgery (SDC) | payer MEDICARE ==
[~2017-11-12] MED LIST changes: +FENTANYL CITRATE/PF 100MCG/2 ML INJ ONE; +FLOMAX0.4 MG PO; +GABAPENTIN400 MG PO; +MIDAZOLAM HCL 2 MG/2 ML VIAL ONE; +PANTOPRAZOLE 40 MG 10ML VIAL ONE; +PENTASA500 MG PO; +PROPOFOL IV EMULSION 10 MG/ML 50 ML VIAL ONE
--- OUTSIDE RECORDS SUMMARY | 2017-11-12 12:17 | XMS REPORT | Continuity of Care Document ---
Author Author [facility] Organization [facility] Address [address] [place] [address] Phone Unavailable Care Team Providers Care Application Security Specialist Name Role Phone NASEEM POZO MD PCP Insurance Providers Guarantor Forrets Aragon Address [address] [place] [address] Email [email or web address] Payer A[employer] Medicare Complete Policy Number [id number] Subscriber's Name MaheshForrest Drea Relationship 18 Self / Same As Patient Group Number [id number] Effective Date 17 Advance Directives Directive Response Recorded Date/Time Does the patient have an advance directive? Yes 11/12/16 9:20pm If yes, is advance directive on file with [facility]? No 11/12/16 9:20pm If not on file with [facility] will patient provide a copy? Yes 11/12/16 9:20pm Do you have a Directive to Physician? No 11/09/17 11:24am Do you have a Medical Power of Car Designer? No 11/09/17 11:24am Do you have an out of hospital Do Not Resuscitate Order? No 11/09/17 11:24am Do you have any special needs we should be aware of? No 11/09/17 11:24am Do you have a support person here with you today? Yes 11/09/17 11:24am Did patient receive Notice of Privacy Practices? Yes 11/09/17 11:24am Did patient receive patient rights and responsibilities? Yes 11/09/17 11:24am Problems No problem information available. Medications Current [...] No 11/12/2016 9:20pm Not Applicable Not Applicable Hospital Discharge Instructions No hospital discharge instruction information available. Plan of Care Discharge Date 11/09/17 12:45pm Disposition AGAINST MEDICAL ADVICE Condition at Discharge Stable Forms Provided Work/School Excuse Prescriptions See Medication Section Functional Status No functional status information available. [...] 11/08/2017 12:49pm Height 6 ft 0 in 11/09/2017 11:20am Weight 215 lb 11/09/2017 11:20am Body Mass Index 29.2 kg/m^2 11/09/2017 11:20am Results Laboratory Results Test Name Result Units Flags Reference Collection Date/Time Result Date/ Time Comments Lactic Acid Level 13.5 MG/DL 4.5-19.8 07/14/2017 10:33am 07/14/2017 11: 05am Lipase 17 U/L 8-78 07/14/2017 10:33am 07/14/2017 11:12am White Blood Count 6.84 x10e3/uL 4.8-10.8 11/08/2017 9:20am 11/08/2017 9 :44am Red Blood Count 4.98 x10e6/uL 4.3-5.7 11/08/2017 9:20am 11/08/2017 9: 44am Hemoglobin 14.5 g/dL 14.0-18.0 11/08/2017 9:20am 11/08/2017 9:44am Hematocrit 42.5 % 38.2-49.6 11/08/2017 9:11/08/2017 [...] 9:44am Eosinophils # (Auto) 0.2 0.0-0.4 11/08/2017 9:2011/08/2017 9:44am Basophils # (Auto) 0.0 0.0-0.1 11/08/2017 9:2011/08/2017 9:44am Absolute Immature Granulocyte (auto 0.03 x10e3/uL 0-0.1 11/08/2017 9: 2011/08/2017 9:44am Urine Color YELLOW YELLOW 11/08/2017 9:2011/08/2017 10:14am Urine Clarity CLEAR CLEAR 11/08/2017 9:2011/08/2017 10:14am Urine Specific [place] 1.020 1.010-1.025 11/08/2017 9:202017 10:14am Urine pH 5 5 - 7 11/08/2017 9:11/08/2017 10:14am Urine Leukocyte Esterase NEGATIVE NEGATIVE 11/08/2017 9:202017 10:14am Urine Nitrite NEGATIVE NEGATIVE 11/08/2017 9:11/08/2017 10:14am Urine Protein NEGATIVE NEGATIVE 11/08/2017 9:2011/08/2017 10:14am Urine Glucose (UA) NEGATIVE NEGATIVE 11/08/2017 9:11/08/2017 10: 14am Urine Ketones NEGATIVE NEGATIVE 11/08/2017 9:11/08/2017 10:14am Urine Urobilinogen 0.2 mg/dL 0.2 - 1 11/08/2017 9:2011/08/2017 10: 14am Urine Bilirubin NEGATIVE NEGATIVE 11/08/2017 9:11/08/2017 10: 14am Urine Blood NEGATIVE NEGATIVE 11/08/2017 9:11/08/2017 10:14am Urine WBC NONE /HPF 0-5 11/08/2017 9:2011/08/2017 10:14am Urine RBC NONE /HPF 0-5 11/08/2017 9:2011/08/2017 10:14am Urine Bacteria NONE /HPF NONE 11/08/2017 9:2011/08/2017 10:14am Urine Epithelial Cells NONE /LPF NONE 11/08/2017 9:2011/08/2017 10: 14am Sodium Level 139 mmol/L 136-145 11/08/2017 9:2011/08/2017 10:17am Potassium Level 3.6 mmol/L 3.5-5.1 11/08/2017 9:11/08/2017 10: 17am Chloride Level 105 mmol/L 98-107 11/08/2017 9:11/08/2017 10:17am Carbon Dioxide Level 26 mmol/L 22-29 11/08/2017 9:11/08/2017 10: 17am Anion Gap 11.6 mmol/L 8-16 11/08/2017 9:11/08/2017 10:17am Blood Urea Nitrogen 10 mg/dL 7-11/08/2017 9:11/08/2017 10:17am Creatinine 0.87 mg/dL 0.72-1.25 11/08/2017 9:11/08/2017 10:17am BUN/Creatinine Ratio 11 6-11/08/2017 9:11/08/2017 10:17am Estimat Glomerular Filtration Rate > [...] 10:17am Globulin 4.1 g/dL H 2.3-3.5 11/08/2017 9:20am 11/08/2017 10:17am Albumin/Globulin Ratio 0.9 0.8-2.0 11/08/2017 9:20am 11/08/2017 10: 17am Alkaline Phosphatase 90 IU/L 40-150 11/08/2017 9:20am 11/08/2017 10: 17am Creatine Kinase 44 IU/L 30-200 11/08/2017 9:20am 11/08/2017 10:17am Creatine Kinase MB 1.70 ng/mL 0-5.0 11/08/2017 9:20am 11/08/2017 10: 37am Troponin I < 0.001 ng/mL 0-0.300 11/08/2017 9:20am 11/08/2017 10:37am Procedures Procedure Status Date Provider(s) Computed tomography of abdomen and pelvis with contrast Active 07/14/17 OSWALDO FUENTES NP Computed tomography of abdomen and pelvis with contrast Active 11/08/17 CHRISTIAN LOWE Encounters Encounter Location Arrival/Admit Date Discharge/Depart Date Attending Provider Dep[facility]ed [facility] 11/09/17 10:59am 11/09 12:45pm ANA COOPER MD [facility]ed [facility] 11/08/17 9:08am 12:20pm LUCIUS VALLEJO MD Dep[facility]ed [facility] 07/14/17 9:58am 1:22pm SYMONE HARMAN MD Departed [facility] 06/08/17 5:27pm 7:59pm LUCIUS VALLEJO MD
--- OUTSIDE RECORDS SUMMARY | 2017-11-12 12:17 | XMS REPORT | Clinical Summary ---
Author Author [facility] Address Unknown Phone Unavailable Care Team Providers Care Asset Protection Greeter Name Role Phone PCP Unavailable Allergies No [...] 07/08/2017 Orders Only General Internal Medicine after 11/11/2016 Immunizations Name Dates Previously Given Next Due Tdap 04/11/2013 Social History Tobacco Use Types Packs/Day Years Used Date Current Every Day Smoker 0.1 46 Smokeless Tobacco: Never Used Alcohol Use Drinks/Week oz/Week Comments No Sex Assigned at Date Recorded Not on file Last Filed Vital Signs Vital Sign Reading Time Taken Blood Pressure 124/81 07/08/2017 9:26 PM DE ICER KIT ASSEMBLER Pulse 114 07/08/2017 9:26 PM DE ICER KIT ASSEMBLER Temperature 36.7 C (98 F) 07/08/2017 9:26 PM DE ICER KIT ASSEMBLER Respiratory Rate 20 07/08/2017 9:26 PM DE ICER KIT ASSEMBLER Oxygen Saturation 96% 07/08/2017 9:26 PM DE ICER KIT ASSEMBLER Inhaled Oxygen - - Concentration Weight 93 kg (205 lb) 07/08/2017 9:26 PM DE ICER KIT ASSEMBLER Height 182.9 cm (6') 07/08/2017 9:26 PM DE ICER KIT ASSEMBLER Body Mass Index 27.8 07/08/2017 9:26 PM DE ICER KIT ASSEMBLER Plan of Treatment Not on file Results * ECG 12 lead (07/08/2017 9:11 PM) Specimen Performing Laboratory [employer] Narrative Ventricular Rate 108 BPM Atrial Rate 108 BPM P-R Interval 156 ms QRS Duration 86 ms Q-T Interval 336 ms QTC Calculation(Bazett) 450 ms P [place] 59 degrees R [place] 249 degrees T [place] 51 degrees Sinus tachycardia S1-S2-S3 pattern, consider pulmonary disease, RVH, or normal variant Right ventricular hypertrophy Abnormal ECG When compared with ECG of 11-NOV-1999 07:19, S1-S2-S3 pattern, consider pulmonary disease, RVH, or normal variant is now present. Clinical correlation is needed. Confirmed by Maribel KAYE MICHAEL ([id number]) on 07/09/2017 9:53:41 AM Procedure Note Interface, External Ris In - 07/09/2017 9:53 AM DE ICER KIT ASSEMBLER Ventricular Rate 108 BPM Atrial Rate 108 BPM P-R Interval 156 ms QRS Duration 86 ms Q-T Interval 336 ms QTC Calculation(Bazett) 450 ms P [place] 59 degrees R [place] 249 degrees T [place] 51 degrees Sinus tachycardia S1-S2-S3 pattern, consider pulmonary disease, RVH, or normal variant Right ventricular hypertrophy Abnormal ECG When compared with ECG of 11-NOV-1999 07:19, S1-S2-S3 pattern, consider pulmonary disease, RVH, or normal variant is now present. Clinical correlation is needed. Confirmed by Maribel KAYE MICHAEL ([id number]) on 07/09/2017 9:53:41 AM after 11/11/2016
--- NOTE | 2017-11-12 15:11 | Operative Report ---
DATE OF PROCEDURE: November 12, 2017 REFERRING PHYSICIAN: Dr. Melissa Pozo PROCEDURE PERFORMED: Esophagogastroduodenoscopy with biopsies. INDICATIONS FOR EGD: Upper abdominal pain and nausea. MEDICATION: Patient was done under MAC. Please see anesthesiologist's note. PROCEDURE: With the patient in the lateral decubitus position, the flexible fiberoptic Olympus gastroscope was introduced into the esophagus under direct visualization without any difficulty. There was some patchy areas of raised mucosa and biopsies were obtained. A minute tongue of velvety red mucosa was noted to extend proximally from the GE junction that was biopsied to rule out Nam's. The scope was then advanced with ease into the stomach traversing a moderate size hiatal hernia. Mucosa overlying the antrum and the body revealed some patchy erythema and mild to moderate edema, and biopsies were obtained and sent to stain for H. pylori. Pylorus appeared to be of normal contour and shape. It was intubated with ease. The scope was advanced all the way to the 2nd portion of the duodenum. The scope was then withdrawn slowly and mucosa overlying the proximal 2nd portion and the duodenal bulb appeared to be within normal limits. The scope was then withdrawn back into the stomach and retroflexed. Mucosa overlying the fundus and the cardia appeared to be within normal limits. The scope was then straightened out. It was subsequently withdrawn. Patient tolerated the procedure well. IMPRESSION 1. Distal esophagitis. 2. Patchy areas of raised esophageal mucosa and biopsies were obtained. 3. Rule out Nam's esophagus. 4. Moderate size sliding hiatal hernia. 5. Gastritis, biopsied. Biopsies sent to stain for Helicobacter pylori. PLAN: Follow up histology. Increase Protonix to 40 mg 1 p.o. a.c. b.i.d. Job#: [id number] [place] cc:MELISSA POZO MD
== END | disposition home or self-care (01) ==
LOC: OR 12:15
PROVIDERS: ATTEND Internal Medicine Gastroenterology
CPT/HCPCS: 43239; 88305; 88312; J2250

== ENCOUNTER → 2017-12-10 | Outpatient (CLI) | payer MEDICARE ==
[~2017-12-10] MED LIST changes: -FENTANYL CITRATE/PF 100MCG/2 ML INJ ONE; -MIDAZOLAM HCL 2 MG/2 ML VIAL ONE; -PANTOPRAZOLE 40 MG 10ML VIAL ONE; -PROPOFOL IV EMULSION 10 MG/ML 50 ML VIAL ONE
== END ==
LOC: DX 07:32
PROVIDERS: ATTEND Internal Medicine Gastroenterology
DX: R10.9 Unspecified abdominal pain (principal)

== ENCOUNTER → 2018-07-27 | Outpatient (CLI) | payer MEDICARE ==
[~2018-07-27] MED LIST changes: +IOPAMIDOL 370 MG/ML 200 ML INFUS..BTL INJ ONE; +SODIUM CHLORIDE 0.9% 50ML 50 ML ONE
[2018-07-27 17:25] LABS: BLOOD UREA NITROGEN 7 mg/dL (7-26); BUN/CREATININE RATIO 8 (6-25); CREATININE, SERUM 0.84 mg/dL (0.72-1.25); EST GLOMERULAR FILTRATION RATE > 60 ML/MIN (60-)
--- NOTE | 2018-07-27 18:01 | Diagnostic Imaging Report ---
EXAM: CT Abdomen and Pelvis WITH contrast INDICATION: Crohn's, pain COMPARISON: 11/08/2017 CT, no report available TECHNIQUE: Abdomen and Pelvis was scanned utilizing a multidetector helical scanner after administration of IV contrast. Coronal and sagittal reformations were obtained. IV CONTRAST: 100 mL Isovue-370 COMPLICATIONS: None RADIATION DOSE: Total DLP:636 mGy*cm Estimated effective dose: (DLP x 0.015 x size factor) mSv CTDIvol has been reviewed. It is below the limits set by the Radiation Protocol Committee (RPC). Appropriate CT dose reduction techniques were utilized. FINDINGS: Abdomen: Lung Bases: Linear and nodular densities in the lung bases, more conspicuous than previous studies. Most notable 9 mm right lower lobe series 2 image 4. Solid Organs: Cholecystectomy clips. Liver, adrenals, kidneys, and spleen unremarkable. Partial fatty replacement of the pancreas, particularly the head, stable. Upper GI Tract: Partial decompression of the stomach limits evaluation. No small bowel obstructive changes. Vascularity: No aortic aneurysm. Lymph Nodes: No suspicious adenopathy. Other: Small fat-containing umbilical hernia. Pelvis: Bladder: Unremarkable. Other: Enlarged prostate indenting base of bladder. Colon: Colonic decompression overall limits evaluation. No distinct wall thickening or inflammatory changes. Appendix not inflamed. Bones: T10 and [id number] with vertebroplasty changes L2. Posttraumatic and postsurgical changes left hip. IMPRESSION: 1. No definite acute findings in the abdomen or pelvis. 2. New linear and nodular opacities in the lung bases suggest an acute infectious/inflammatory process. [address] chest follow-up recommended to document resolution. Signed by: Dr. Alvin Porras MD on 07/27/2018 5:57 PM
== END ==
LOC: CT 16:25
PROVIDERS: ATTEND Internal Medicine Gastroenterology
DX: R10.10 Upper abdominal pain, unspecified (principal); K50.90 Crohn's disease, unspecified, without complications
CPT/HCPCS: 36415; 74177; 82565; 84520; Q9967